=== PATIENT | female | born 1975 | race Caucasian/White ===

== ENCOUNTER 2022-01-26 10:04 | Day surgery (SDC) | payer OTHER, SELFPAY ==
[~2022-01-26] VITALS: Ht 162.6 cm; Wt 87.5 kg
[2022-01-26] MEDS ORDERED: fentaNYL citrate 0.05 MG/ML VIAL ONE (11:21)
[2022-01-26] MEDS ORDERED: MIDAZOLAM 5 MG/5 ML VIAL ONE (11:22)
[2022-01-26] MEDS ORDERED: LIDOCAINE 2% 100 MG/5 ML UJET TP ONE (11:22)
[2022-01-26] MEDS ORDERED: MIDAZOLAM 2 MG/2 ML VIAL IVP ONE (14:00)
[2022-01-26] MEDS ORDERED: fentaNYL citrate 0.05 MG/ML VIAL IVP ONE (14:00)
== END 2022-01-26 14:05 | disposition home or self-care (01) ==
LOC: MDS 10:04 → MMU 10:04 → MDS 14:05
PROVIDERS: ATTEND Internal Medicine Gastroenterology
DX: Z12.11 Encounter for screening for malignant neoplasm of colon (principal); D12.2 Benign neoplasm of ascending colon; K21.9 Gastro-esophageal reflux disease without esophagitis; K21.00 Gastro-esophageal reflux disease with esophagitis, without bleeding; Z79.899 Other long term (current) drug therapy; Z20.822 Contact with and (suspected) exposure to COVID-19
CPT/HCPCS: 36415; 43239; 45385; 86677; 87426; J2250; J3010